=== PATIENT | female | born 1955 | race Two or more races ===

== ENCOUNTER 2019-05-15 15:06 | Emergency (ER) | payer OTHER ==
[~2019-05-15] VITALS: Ht 162.6 cm; Wt 84.8 kg
--- NOTE | 2019-05-15 15:32 | NUR ---
BIB SON, C/O LT SIDE CHEST PRESSURE, NON RAD, ON&OFF WITH SOB WHILE AMB SINCE FRI. ALSO FILI LE EDEMA. DENIES SOB, DIZZY, N/V, ARM/JAW PAIN NOW. PT AAOX4, VSS. PT SEEN & EVAL'D BY DR. LAND. PLACED ON SIGNAL REPAIRER, SR & NO ECTOPY NOTED. WILL CONT TO MONITOR.
[2019-05-15] MEDS ORDERED: NITROGLYCERIN PACKET 1 GM PACKET ONE (15:43)
[2019-05-15] MEDS ORDERED: ASPIRIN 81 MG TAB.CHEW ONE (15:43)
[2019-05-15] MEDS: ASPIRIN 81 MG TAB.CHEW PO ONE (15:47)
[2019-05-15 15:48] LABS: BASOPHILS % (AUTO) 0.7 % (0.0-2.0); EOSINOPHILS % (AUTO) 2.6 % (0.0-6.0); HEMATOCRIT 38 % (33-45); LYMPHOCYTES # (AUTO) 2.3 /CMM (0.8-4.8); LYMPHOCYTES % (AUTO) 30.8 % (20.0-44.0); MEAN CORPUSCULAR HGB CONC 34 g/dl (31.0-36.0); MEAN CORPUSCULAR VOLUME 88 fL (82-100); MONOCYTES # (AUTO) 0.7 /CMM (0.1-1.30); MONOCYTES % (AUTO) 9.6 % (2.0-12.0); NEUTROPHILS # (AUTO) 4.3 /CMM (1.8-8.9); NEUTROPHILS % (AUTO) 56.3 % (43.0-81.0); PLATELET COUNT (AUTO) 243 /CMM (150-450); RED BLOOD CELL COUNT(AUTO) 4.33 MIL/uL (4.0-5.2); WHITE BLOOD COUNT (AUTO) 7.6 K/uL (4.3-11.0)
[2019-05-15] MEDS: NITROGLYCERIN PACKET 1 GM PACKET TD ONE (15:48)
--- NOTE | 2019-05-15 15:50 | NUR ---
MEDICATED PER ERMD ORDER, PT JASPER WELL.
[2019-05-15 16:05] LABS: CALCIUM, SERUM 9.2 mg/dL (8.5-10.1); CARBON DIOXIDE 27 mmol/L (21-32); CHLORIDE 101 mmol/L (98-107); CREATININE 0.8 mg/dL (0.6-1.3); GLUCOSE 133 mg/dL (74-106); POTASSIUM 3.7 mmol/L (3.5-5.1); SODIUM SERUM 139 mmol/L (136-145); UREA NITROGEN, BLOOD 12 mg/dL (7-18)
[2019-05-15] MEDS ORDERED: BENA20TA9 PO (16:13)
[2019-05-15] MEDS ORDERED: OMEG1CAP40 PO (16:13)
[2019-05-15] MEDS ORDERED: MECL12.582 PO (16:13)
[2019-05-15] MEDS ORDERED: HYDR25TA4 PO (16:13)
--- NOTE | 2019-05-15 19:02 | NUR ---
PT EATING A MEAL, PT JASPER WELL. PT STS LT SIDE CP 11/12 JASPER WELL. DENIES SOB, DIZZINESS, N/V, ARM/JAW/BACK PAIN AT THIS TIME. WILL CONT TO MONITOR & AWAITING TRANSFER TO [facility].
--- NOTE | 2019-05-15 19:14 | NUR ---
MANAGEMENT ASSOCIATE CALLED. GOING TO [facility]. ACCEPTING MD CAMPBELL NURSE TO NURSE REPORT [phone], ROOM 210.A. AWAITING [facility]
--- NOTE | 2019-05-15 19:15 | NUR ---
Michael davey in ED - 05/15/19 at 1944 by [facility] [address] GIVE REPORT TO [phone] DR. ADRIAN MOULTON.
--- NOTE | 2019-05-15 19:50 | NUR ---
REPORT GIVEN TO IRENE SOLORZANO FOR [facility] AT [facility].
--- NOTE | 2019-05-15 19:55 | NUR ---
PT RESTING IN BED, NAD NOTED. WILL CONTINUE TO MONITOR. FAMILY AT BEDSIDE.
[2019-05-15 20:28] VITALS: BP 133/71
--- NOTE | 2019-05-15 20:28 | NUR ---
REPORT GIVEN TO David MORENO TIRE AND TUBE REPAIRER FOR TRANSPORT TO [facility].
== END 2019-05-15 20:32 | disposition short-term general hospital (02) ==
LOC: ER 15:06
DX: R07.89 Other chest pain (principal); I10 Essential (primary) hypertension; Z79.899 Other long term (current) drug therapy
CPT/HCPCS: 36415; 71045-TC; 80048-TC; 83880; 84484-TC; 85025-TC